=== PATIENT | female | born 1980 | race Caucasian/White ===

== ENCOUNTER 2019-04-29 19:37 | Emergency (ER) | payer BC, OTHER ==
[~2019-04-29] VITALS: Ht 165.1 cm; Wt 99.8 kg
[~2019-04-29 19:37] MED LIST: AUGMENTIN 875875 MG PO; LAMICTAL100 MG PO; RISPERDAL4 M1 PO; ULTRAM 50MG TAB50 MG PO
[2019-04-29] MEDS ORDERED: IBUPROFEN 600600 M1 PO (20:44)
[2019-04-29 21:25] VITALS: BP 147/92
== END 2019-04-29 21:25 | disposition home or self-care (01) ==
LOC: ER 19:37
DX: S82.891A Other fracture of right lower leg, initial encounter for closed fracture (principal); F31.9 Bipolar disorder, unspecified; Z98.890 Other specified postprocedural states; Z88.5 Allergy status to narcotic agent; W10.8XXA Fall (on) (from) other stairs and steps, initial encounter; Y93.89 Activity, other specified; Y92.89 Other specified places as the place of occurrence of the external cause; Y99.8 Other external cause status